=== PATIENT | female | born 1985 | race Hispanic/Latino ===

== ENCOUNTER 2020-12-14 19:53 | Emergency (ER) | payer OTHER, SELFPAY ==
[2020-12-14] MEDS ORDERED: Ketorolac Tromethamine 60 MG/2 ML VIAL ONE (20:48)
== END 2020-12-14 21:19 | disposition home or self-care (01) ==
LOC: NAV ERS 19:53
DX: S93.401A Sprain of unspecified ligament of right ankle, initial encounter (principal); G43.909 Migraine, unspecified, not intractable, without status migrainosus; W22.8XXA Striking against or struck by other objects, initial encounter
CPT/HCPCS: 96372; J1885